=== PATIENT | male | born 1975 | race Caucasian/White ===

== ENCOUNTER 2023-08-29 22:11 | Emergency (ER) | payer SELFPAY ==
[~2023-08-29] VITALS: Ht 182.9 cm; Wt 90.0 kg
[2023-08-29] MEDS ORDERED: MAGNESIUM/ALUMINUM HYDROXIDE/SIMETHICONE 30ML UDC PO STA (22:24)
[2023-08-29] MEDS ORDERED: ONDANSETRON HCL 4MG/2ML INJ IV STA (22:24)
[2023-08-29] MEDS ORDERED: SODIUM CHLORIDE 0.9% 1,000 ML IV ONE (22:30)
[2023-08-29 22:39] VITALS: BP 108/74; PULSE 100; RESP 18; TEMP 99; O2SAT 100
[2023-08-29 23:47] LABS: INR 1.1; PROTHROMBIN TIME 11.4 sec (9.6-11.0)
[2023-08-29 23:49] LABS: HEMATOCRIT. 53.2 % (42.0-52.0); HEMOGLOBIN. 18.3 g/dL (14.0-18.0); MEAN CORPUSCULAR HEMOGLOBIN 30.8 pg (28.0-32.0); MEAN CORPUSCULAR HGB CONC 34.4 g/dL (31.0-37.0); MEAN CORPUSCULAR VOLUME 89.6 fL (80.0-94.0); MEAN PLATELET VOLUME 7.6 fl (7.4-10.4); PLATELET 225 x1000/uL (130-400); RED BLOOD CELL COUNT 5.94 mill/uL (4.7-6.1); RED CELL DISTRIBUTION WIDTH 13.5 % (11.6-14.6); WHITE BLOOD COUNT 8.9 x1000/uL (4.5-11.0)
[2023-08-29 23:50] LABS: ALANINE AMINOTRANSFERASE 23 IU/L (10-49); ALBUMIN 4.5 g/dL (3.2-4.8); ASPARTATE AMINOTRANSFERASE 20 IU/L (<34); BILIRUBIN TOTAL 1.3 mg/dL (0.1-1.0); CALCIUM 9.3 mg/dL (8.7-10.4); CARBON DIOXIDE 27 mEq/L (21-32); CHLORIDE 105 mEq/L (98-107); CREATININE 1.1 mg/dL (0.6-1.3); ETHANOL BLOOD < 10 mg/dL (<10); GLUCOSE 151 mg/dL (70-105); POTASSIUM 4.2 mEq/L (3.5-5.1); PROTEIN TOTAL 7.5 g/dL (6.0-8.3); SODIUM 140 mEq/L (136-145); UREA NITROGEN BLOOD 16 mg/dL (9-23)
[2023-08-29 23:51] LABS: DIFFERENTIAL COMMENT 1
[2023-08-29 23:57] LABS: LACTIC ACID 2.9 mmol/L (0.4-2.0)
[2023-08-30 01:17] LABS: PLATELET ESTIMATE NORMAL
[2023-08-30] MEDS ORDERED: MAGNESIUM/ALUMINUM HYDROXIDE/SIMETHICONE 30ML UDC PO NR (02:45)
[2023-08-30] MEDS ORDERED: ONDANSETRON HCL 4MG/2ML INJ IV NR (02:45)
[2023-08-30] MEDS ORDERED: ONDA4TAB50 MT (03:28)
[2023-08-30] MEDS ORDERED: MAG-55 MT (03:28)
[2023-08-30] MEDS ORDERED: ACET-2708 MT (03:28)
== END 2023-08-30 04:54 | disposition home or self-care (01) ==
LOC: ER 22:11
DX: A08.4 Viral intestinal infection, unspecified (principal); Z88.0 Allergy status to penicillin
CPT/HCPCS: 80053; 80320; 83605 ×2; 83690; 85025; 85610; 36415; 99283; 96361; 96374; J7030; J2405; Z7610; G0480